=== PATIENT | female | born 1960 | race Caucasian/White ===

== ENCOUNTER 2018-02-28 14:04 | Outpatient (CLI) | payer BC | END 2018-02-28 14:05 | disposition home or self-care (01) | LOC: BICMAMMO 14:04 | PROVIDERS: ATTEND Obstetrics & Gynecology | DX: Z12.31 Encounter for screening mammogram for malignant neoplasm of breast (principal); Z80.3 Family history of malignant neoplasm of breast | CPT/HCPCS: 77063; 77067 ==

== ENCOUNTER 2018-07-27 15:05 | Emergency (ER) | payer BC ==
[2018-07-27] MEDS ORDERED: Adacel (T-DAP) 0.5 ML VIAL ONE (15:51)
--- NOTE | 2018-07-27 15:59 | CT ---
CT HEAD WITHOUT CONTRAST: Date: 07/27/18 Multiple axial tomograms obtained through the head without IV enhancement. INDICATION: Fall with injury to head. FINDINGS: Ventricles have normal size and position. No evidence of intracranial hemorrhage. No mass, contusion, or infarct seen. There is small scalp hematoma over the frontal bone. There is no evidence of skull fracture identifie d. Sinuses and mastoids are well aerated. IMPRESSION: No evidence of acute abnormality. POS: [facility]
--- NOTE | 2018-07-27 16:06 | CT ---
FACIAL BONES CT WITHOUT CONTRAST: Date: 07/27/18 HISTORY: Pain. Injury. COMPARISON: None. FINDINGS: There is a midline frontal scalp hematoma. Calvarium is intact. There are bilateral nasal bone fractures with associated soft tissue swelling. Adequate aeration of the sinuses and mastoid air cells. Bilateral pterygoid plates are intact. Bilateral zygomatic arches and mandible/maxilla are also intac t. Visualized aerodigestive tract is patent. Limited evaluation of the anterior oral cavity due to de ntal amalgam artifact. Midline fatty raphe of the tongue is preserved. There are degenerative changes involving both mandibular condyles. Visualized cervical spine is intac t. Bilateral ostiomeatal complexes are patent. Rightward deviation of an intact nasal septum. IMPRESSION: Nasal bone fractures bilaterally. Right nasal bone fracture is nondisplaced. There is a mildly displa abdulkadir left nasal bone fracture. Associated soft tissue swelling. POS: [facility]
== END 2018-07-27 16:05 | disposition home or self-care (01) ==
LOC: SCSER 15:05
DX: S02.2XXA Fracture of nasal bones, initial encounter for closed fracture (principal); I10 Essential (primary) hypertension; E11.9 Type 2 diabetes mellitus without complications; Z79.84 Long term (current) use of oral hypoglycemic drugs; Z79.899 Other long term (current) drug therapy; W18.09XA Striking against other object with subsequent fall, initial encounter
CPT/HCPCS: 70450; 70486; 90471; 90715

== ENCOUNTER 2018-08-01 11:09 | Day surgery (SDC) | payer OTHER ==
[2018-07-31 15:08] VITALS: BMI 32.3
[2018-08-01] MEDS ORDERED: Lidocaine 1% w/Epinephrine 1:100K 30 ML VIAL ONE (13:25)
[2018-08-01] MEDS ORDERED: Oxymetazoline HCl 0.05% ( 15 ML ) ONE (13:26)
[2018-08-01] MEDS ORDERED: Bacitracin Zinc Ointment 30 gm TUBE ONE (13:26)
[2018-08-01] MEDS ORDERED: Fentanyl 100 MCG/2 ML VIAL ONE (13:30)
[2018-08-01] MEDS ORDERED: PROPOFOL 200 MG/20 ML VIAL ONE (13:42)
[2018-08-01] MEDS ORDERED: ePHEDrine/0.9% NaCl/PF SYRINGE 50 mg/10 ml ONE (13:42)
[2018-08-01] MEDS ORDERED: HYDROcodone/Acetaminophen 5/325 mg Tablet ONE (16:02)
--- NOTE | 2018-08-03 12:20 | OP ---
PREOPERATIVE DIAGNOSES: Displaced nasal septal fracture, hypertrophic inferior turbinates. POSTOPERATIVE DIAGNOSES: Displaced nasal septal fracture, hypertrophic inferior turbinates. PROCEDURES PERFORMED: Closed reduction nasal fracture with internal and external splinting and bilat eral nasal endoscopy with submucosal resection of inferior turbinates. PROCEDURE IN DETAIL: After consent was obtained, the patient was identified and brought to the opera ting room and placed on the operative table in supine position. Laryngeal mask anesthesia was obtain ed. The patient was positioned for surgery. The nasal tissues were decongested with topical Afrin a nd 1% lidocaine with 1:100,000 epinephrine was infiltrated into the inferior turbinate region. We th en proceeded with reducing the nasal bones and supporting them intranasally with Gelfoam that reduced fragments. We then proceeded with placing Adames splints in the nose and suture securing that in the septum. We then placed an external bridge master splint to keep the nasal bones in reduction electronics instructor ally. Subsequent to this, we got the nasal endoscope and performed a systematic nasal endoscopy, und er endoscopic visualization, the both inferior turbinates underwent submucosal resection with the [employer] inferior turbinate blade shaver. At the completion of this portion of the procedure, the nos e was packed with cottonoids, which were then subsequently removed. The patient was then taken to re covery room where she remained in stable condition prior to discharge home.
--- NOTE | 2018-08-05 22:13 | EKG ---
Test Reason : PREOP Blood Pressure : / mmHG Vent. Rate : 070 BPM Atrial Rate : 070 BPM P-R Int : 176 ms QRS Dur : 096 ms QT Int : 418 ms P-R-T Axes : 028 -07 022 degrees QTc Int : 451 ms Normal sinus rhythm Normal ECG No previous ECGs available Confirmed by CATRACHITA PEREZ (2) on 08/05/2018 10:13:11 PM Referred By: MOHINI Confirmed By:CATRACHITA PEREZ
== END 2018-08-01 16:08 | disposition home or self-care (01) ==
LOC: SDC 11:09
PROVIDERS: ATTEND Specialist
PROC: 09TL8ZZ Resection of Nasal Turbinate, Via Natural or Artificial Opening Endoscopic (ICD-10-PCS; principal; 2018-08-01)
PROC: 0NSBXZZ Reposition Nasal Bone, External Approach (ICD-10-PCS; principal; 2018-08-01)
DX: S02.2XXA Fracture of nasal bones, initial encounter for closed fracture (principal); J34.3 Hypertrophy of nasal turbinates; J34.2 Deviated nasal septum; E78.00 Pure hypercholesterolemia, unspecified; I10 Essential (primary) hypertension; D64.9 Anemia, unspecified; Z79.84 Long term (current) use of oral hypoglycemic drugs; Z79.899 Other long term (current) drug therapy; W01.0XXA Fall on same level from slipping, tripping and stumbling without subsequent striking against object, initial encounter; Y92.214 College as the place of occurrence of the external cause
CPT/HCPCS: 85014; 93005; 93010; J2001; J2704; J3010

== ENCOUNTER 2019-03-01 15:53 | Outpatient (CLI) | payer BC ==
--- NOTE | 2019-03-01 16:19 | MMO ---
Bilateral MAMMO Bilat Screen [facility]. CLINICAL HISTORY: Patient is 59 years old and is seen for screening. The patient has the following family history of breast cancer: sister, at age 39. The patient has no personal history of cancer. VIEWS: The views performed were: bilateral craniocaudal with tomosynthesis and bilateral mediolateral oblique with tomosynthesis. FILMS COMPARED: The present examination has been compared to prior imaging studies performed at [facility] on 12/09/2014, 01/08/2016, 01/31/2017 and 02/28/2018. MAMMOGRAM FINDINGS: The breasts are heterogeneously dense, which could obscure a lesion on mammography. There are stable benign appearing calcifications seen in both breasts. There are no suspicious masses, suspicious calcifications, or new areas of architectural distortion. IMPRESSION: THERE IS NO MAMMOGRAPHIC EVIDENCE OF MALIGNANCY. A ROUTINE FOLLOW-UP MAMMOGRAM IN 1 YEAR IS RECOMMENDED. THE RESULTS OF THIS EXAM WERE SENT TO THE PATIENT. ACR BI-RADS Category 2 - Benign finding MAMMOGRAPHY NOTE: 1. A negative mammogram report should not delay a biopsy if a dominant of clinically suspicious mass is present. 2. Approximately 10% to 15% of breast cancers are not detected by mammography. 3. Adenosis and dense breasts may obscure an underlying neoplasm.
== END 2019-03-01 15:54 | disposition home or self-care (01) ==
LOC: BICMAMMO 15:53
PROVIDERS: ATTEND Obstetrics & Gynecology
DX: Z12.31 Encounter for screening mammogram for malignant neoplasm of breast (principal); Z80.3 Family history of malignant neoplasm of breast
CPT/HCPCS: 77063; 77067

== ENCOUNTER 2021-06-02 08:31 | Outpatient (CLI) | payer BC | END 2021-06-02 08:32 | disposition home or self-care (01) | LOC: BICRAD 08:31 | PROVIDERS: ATTEND Family Medicine | DX: R20.2 Paresthesia of skin (principal); M47.812 Spondylosis without myelopathy or radiculopathy, cervical region | CPT/HCPCS: 72040 ==